=== PATIENT | male | born 2000 | race Caucasian/White ===

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

== ENCOUNTER 2021-06-09 22:26 | Emergency (ER) | payer SELFPAY ==
[2021-06-09] MEDS ORDERED: Sodium Chloride 0.9% 1,000 ML ONE (23:25)
[2021-06-09] MEDS ORDERED: Ondansetron PF 4 MG/2 ML Vial ONE (23:25)
[2021-06-09 23:36] LABS: #Basophils 0.3 thou/uL (0.0-0.2); #Eosinphils 0.1 thou/uL (0.0-0.7); #Lymphocytes 2.1 thou/uL (1.20-3.40); #Monocytes 0.8 thou/uL (0.11-0.59); #Neutrophils 13.5 thou/uL (1.40-6.50); %Basophils 1.7 % (0.0-1.0); %Eosinophils 0.6 % (0.0-10.0); %Lymphocytes 12.3 % (28.0-48.0); %Monocytes 4.8 % (0.0-4.0); %Neutrophils 80.6 % (31.0-61.0); Hemoglobin 19.1 g/dL (14.0-18.0); Mean Corpuscular HGB CONC 32.5 g/dL (32.0-36.0); Mean Corpuscular Hemoglobin 30.1 pg (25.0-35.0); Mean Corpuscular Volume 92.7 fL (78.0-98.0); Mean Platelet Volume 10.9 fL (7.4-10.4); Platelet Count 227 thou/uL (130-400); RBC Distribution Width 11.6 % (11.5-14.5); Red Blood Cell (RBC) Count 6.35 mill/uL (4.00-5.20); White Blood Cell (WBC) Count 16.7 thou/uL (4.8-10.8)
[2021-06-09 23:50] LABS: ALT (SGPT) 54 U/L (8-55); AST (SGOT) 21 U/L (10-45); Albumin 5.7 g/dL (3.5-5.0); Alkaline Phosphatase 82 U/L (50-130); Anion Gap 22 mmol/L (10-20); BUN (Urea Nitrogen) 29 mg/dL (8.4-21.0); Calc. Creatinine Clearance 0 mL/min (70-130); Calcium 11.3 mg/dL (7.8-10.44); Carbon Dioxide 20 mmol/L (22-29); Chloride 101 mmol/L (98-107); Globulin 3.8 g/dL (2.4-3.5); Glucose 141 mg/dL (70-105); Potassium 4.5 mmol/L (3.5-5.1); Protein, Total 9.5 g/dL (6.0-8.3); Sodium 138 mmol/L (136-145)
[2021-06-10 00:57] LABS: Anion Gap 17 mmol/L (10-20); BUN (Urea Nitrogen) 27 mg/dL (8.4-21.0); Calc. Creatinine Clearance 0 mL/min (70-130); Calcium 10.2 mg/dL (7.8-10.44); Carbon Dioxide 22 mmol/L (22-29); Chloride 104 mmol/L (98-107); Glucose 120 mg/dL (70-105); Sodium 138 mmol/L (136-145)
[2021-06-10] MEDS ORDERED: Ondansetron PF 4 MG/2 ML Vial ONE (01:21)
== END 2021-06-10 02:33 | disposition home or self-care (01) ==
LOC: NAV ERS 22:26
DX: N17.9 Acute kidney failure, unspecified (principal); E86.0 Dehydration; R11.2 Nausea with vomiting, unspecified; D72.829 Elevated white blood cell count, unspecified; F17.210 Nicotine dependence, cigarettes, uncomplicated
CPT/HCPCS: 36415; 80048; 80053; 83605; 83690; 85025; 96374; 96376; J2405; J7050

== ENCOUNTER 2023-11-23 19:18 | Emergency (ER) | payer SELFPAY ==
[2023-11-23] MEDS ORDERED: Ondansetron PF 4 MG/2 ML Vial ONE (19:54)
[2023-11-23] MEDS ORDERED: Sodium Chloride 0.9% 1,000 ML ONE (19:54)
[2023-11-23] MEDS ORDERED: Lorazepam 2 MG/ML VIAL ONE (19:54)
[2023-11-23 20:10] LABS: #Basophils 0.2 thou/uL (0.0-0.2); #Eosinphils 0.2 thou/uL (0.0-0.7); #Lymphocytes 1.4 thou/uL (1.20-3.40); #Monocytes 1.5 thou/uL (0.11-0.59); #Neutrophils 15.7 thou/uL (1.40-6.50); %Basophils 1.2 % (0.0-1.0); %Lymphocytes 7.3 % (21.0-51.0); %Monocytes 7.9 % (0.0-10.0); %Neutrophils 82.7 % (42.0-75.0); Hematocrit 53.1 % (42.0-52.0); Hemoglobin 18.1 g/dL (14.0-18.0); Mean Corpuscular HGB CONC 34.1 g/dL (32.0-36.0); Mean Corpuscular Hemoglobin 31.2 pg (27.0-31.0); Mean Corpuscular Volume 91.5 fl (78.0-98.0); Platelet Count 194 10x3/uL (130-400); RBC Distribution Width 11.2 % (11.5-14.5); Red Blood Cell (RBC) Count 5.81 mill/uL (4.70-6.10)
[2023-11-23 20:35] LABS: Large Platelets SLIGHT (None Seen); Platelet Adequacy Comment Appears Adequate; RBC Morph Comment Within Normal Limits
[2023-11-23 20:43] LABS: ALT (SGPT) 29 U/L (8-55); AST (SGOT) 16 U/L (5-34); Albumin 5.3 g/dL (3.5-5.0); Alkaline Phosphatase 88 U/L (40-110); Anion Gap 18 mmol/L (10-20); BUN (Urea Nitrogen) 18 mg/dL (8.9-20.6); Bilirubin, Total 1.1 mg/dL (0.2-1.2); Calc. Creatinine Clearance 0 mL/min (70-130); Calcium 10.3 mg/dL (7.8-10.44); Carbon Dioxide 23 mmol/L (22-29); Chloride 104 mmol/L (98-107); Estimated GFR 109; Globulin 3.1 g/dL (2.4-3.5); Glucose 99 mg/dL (70-105); Lipase 4 U/L (8-78); Potassium 4.2 mmol/L (3.5-5.1); Protein, Total 8.4 g/dL (6.0-8.3); Sodium 141 mmol/L (136-145)
== END 2023-11-23 21:51 | disposition home or self-care (01) ==
LOC: NAV ERS 19:18
DX: F41.9 Anxiety disorder, unspecified (principal); F15.20 Other stimulant dependence, uncomplicated; F17.210 Nicotine dependence, cigarettes, uncomplicated
CPT/HCPCS: 80053; 83690; 85025; 96361; 96374; 96375; J2060; J2405; J7050

== ENCOUNTER 2024-11-22 22:00 | Emergency (ER) | payer SELFPAY ==
[~2024-11-22 22:00] MED LIST: Iopamidol 370 76% 100 ML VIAL ONE
[2024-11-22 22:20] LABS: INR-International Normal Ratio 1.3; Prothrombin Time 16.3 sec (12.0-14.7)
[2024-11-22 22:21] LABS: PTT 26.7 sec (22.9-36.1)
[2024-11-22 22:24] LABS: D-Dimer Test Less than 0.27 mcg/mL (0.27-0.43)
[2024-11-22] MEDS ORDERED: Morphine 2 MG/ML VIAL ONE (22:24)
[2024-11-22] MEDS ORDERED: Ondansetron PF 4 MG/2 ML Vial ONE (22:24)
[2024-11-22 22:28] LABS: ALT (SGPT) 14 U/L (8-55); AST (SGOT) 14 U/L (5-34); Albumin 5.1 g/dL (3.5-5.0); Alkaline Phosphatase 72 U/L (40-110); BUN (Urea Nitrogen) 15 mg/dL (8.9-20.6); Bilirubin, Total 0.5 mg/dL (0.2-1.2); Calc. Creatinine Clearance 0 mL/min (70-130); Calcium 10.5 mg/dL (7.8-10.44); Chloride 103 mmol/L (98-107); Estimated GFR 72; Globulin 3.1 g/dL (2.4-3.5); Glucose 110 mg/dL (70-105); Potassium 3.6 mmol/L (3.5-5.1); Protein, Total 8.2 g/dL (6.0-8.3); Sodium 143 mmol/L (136-145)
[2024-11-22 22:31] LABS: Hematocrit 49.2 % (42.0-52.0); Hemoglobin 15.7 g/dL (14.0-18.0); Mean Corpuscular Volume 90.7 fl (78.0-98.0); Mean Platelet Volume 10.8 fL (7.4-10.4); Platelet Count 266 10x3/uL (130-400); RBC Distribution Width 10.9 % (11.5-14.5); Red Blood Cell (RBC) Count 5.42 mill/uL (4.70-6.10); White Blood Cell (WBC) Count 18.1 10x3/uL (4.8-10.8)
[2024-11-22 22:40] LABS: Carbon Dioxide Less than 8 mmol/L (22-29); Critical Call Chemistry NAV.KMS@2238
[2024-11-22] MEDS ORDERED: Sodium Chloride 0.9% 1,000 ML ONE (22:41)
[2024-11-22 22:58] LABS: Eosinophils 2 % (0-10); Lymphocytes 43 % (21-51); MDiff Complete? YES; Monocytes 9 % (0-10); Neutrophil 37 % (42-75); Platelet Adequacy Comment Appears Adequate; Reactive Lymphocytes 8 % (0-10)
[2024-11-23 00:27] LABS: Troponin I Less than 0.010 ng/mL (< 0.028)
[2024-11-23] MEDS ORDERED: Bacitracin 1 PK ONE (00:36)
[2024-11-23 01:16] LABS: Amphetamine Not Detected (NotDetected); Barbiturates Screen Not Detected (NotDetected); Benzodiazepine Screen Not Detected (NotDetected); Cocaine Metabolite Screen Not Detected (NotDetected); Methadone Not Detected (NotDetected); Methamphetamine Detected (NotDetected); Opiate Screen Detected (NotDetected); Oxycodone Screen Not Detected (NotDetected); Phencyclidine (PCP) Not Detected (NotDetected); THC/Cannabinoid Screen Detected (NotDetected); Tricyclic Screen Not Detected (NotDetected)
[2024-11-23 01:20] LABS: Bilirubin Negative (Negative); Blood, Urine Negative (Negative); Clarity Clear (Clear); Glucose, Urine (Dipstick) Negative (Negative); Ketone, Urine Negative (Negative); Leukocyte Negative (Negative); Nitrite Negative (Negative); Protein, Urine (Dipstick) Trace mg/dL (Neg-Trace); Specific Gravity, Urine 1.025 (1.005-1.030); Urobilinogen 0.2 mg/dL (Less than 2)
[2024-11-23 01:21] LABS: Bacteria/HPF Rare-Few HPF (None Seen); CAUTI Indications for Culture Acute Hematuria; WBC/HPF 0-3 HPF (0-3)
[2024-11-23 01:22] LABS: Mucous/LPF 2+ LPF (<2+); Urine Culture Reflex No No
== END 2024-11-23 02:25 | disposition home or self-care (01) ==
LOC: NAV ERS 22:00
DX: T14.8XXA Other injury of unspecified body region, initial encounter (principal); S80.812A Abrasion, left lower leg, initial encounter; S80.811A Abrasion, right lower leg, initial encounter; S70.312A Abrasion, left thigh, initial encounter; S70.311A Abrasion, right thigh, initial encounter; M54.50 Low back pain, unspecified; M54.6 Pain in thoracic spine; F32.9 Major depressive disorder, single episode, unspecified; F15.90 Other stimulant use, unspecified, uncomplicated; F17.210 Nicotine dependence, cigarettes, uncomplicated; Y04.2XXA Assault by strike against or bumped into by another person, initial encounter
CPT/HCPCS: 70450; 71260; 72125; 74177; 80053; 80306; 80307; 81001; 84484; 85025; 85379; 85610; 85730; 93005; 96361; 96374; 96375; J2272; J2405; J7030; Q9967